=== PATIENT | female | born 1980 | race Caucasian/White ===

== ENCOUNTER 2017-02-07 08:35 | Emergency (ER) | payer OTHER ==
[2017-02-07 08:39] VITALS: BP 124/73; PULSE 68; RESP 16; TEMP 97.9
--- NOTE | 2017-02-07 09:07 | ED ---
General Adult HPI - General Chief complaint: Chest Pain Stated complaint: Rib & Side Pain Time Seen by Provider: 02/07/17 08:46 Source: patient, RN notes reviewed Mode of arrival: ambulatory Limitations: no limitations - History of Present Illness Initial comments: Patient is a 36-year-old female who presents to the emergency department today with complaint of rib pain. She reports that 2 weeks ago she leaned over the edge of her pontoon boat and felt a "pop and a crunch" in the right side of her ribs. She states the pain started to go away and then last Monday she leaned up against a washing machine and the pain returned. Since then the pain has progressively worsened. She reports the pain is constant and is sharp and stabbing. She states the pain gets worse with deep breathing and coughing. She has taken Motrin for pain but there has been no relief. Denies fever, chills , shortness of breath, abdominal pain, nausea, vomiting, dysuria, hematuria, numbess, tingling, headache or vision changes. - Related Data Home Medications Medication Instructions Recorded Confirmed Cholecalciferol [Vitamin D3] 1,000 unit PO DAILY 02/07/17 02/07/17 Multivit with Calcium,Iron,Min 1 tab PO DAILY 02/07/17 02/07/17 [Women's Multivitamin] buPROPion SR [Wellbutrin SR] 150 mg PO BID 02/07/17 02/07/17 Previous Rx's Medication Instructions Recorded Hydrocodone/Acetaminophen [[place] 1 tab PO Q4HR PRN #20 tab 02/07/17 5-325] Allergies Allergy/AdvReac Type Severity Reaction Status Date / Time amoxicillin Allergy Rash/Hives Verified 02/07/17 08:57 iodine Allergy Dyspnea,HIV Verified 02/07/17 08:57 ES Penicillins Allergy Rash/Hives Verified 02/07/17 08:57 shellfish derived [Shellfish] Allergy Dyspnea,HIV Verified 02/07/17 08:57 ES Review of Systems ROS Statement: Those systems with pertinent positive or pertinent negative responses have been documented in the HPI. ROS Other: All systems not noted in ROS Statement are negative. Past Medical History Past Medical History: No Reported History Additional Past Medical History / Comment(s): SEE DR MARTINES'S H&P History of Any Multi-Drug Resistant Organisms: None Reported Past Surgical History: Uterine Ablation Past Anesthesia/Blood Transfusion Reactions: No Reported Reaction Past Psychological History: Depression Smoking Status: Current every day smoker Past Alcohol Use History: Occasional Past Drug Use History: None Reported - Past Family History Mother Family Medical History: No Reported History General Exam - General Exam Comments Initial Comments: General: Awake and alert, well-developed; appears uncomfortable. is at the bedside. HEENT: Head atraumatic, normocephalic. Pupils are equal, round and reactive to light. Extraocular movements intact. Neck: Supple. Normal ROM. Trachea midline. Chest/Cardiovascular: Regular rate and rhythm. No murmurs, rubs or gallops. Chest symmetrical. Bony tenderness with palpation of right ribs 5-8. Respiratory: Lungs clear to auscultation bilaterally. No wheezes, rales or rhonchi. Normal respiratory effort with no use of accessory muscles. Patient is visibly uncomfortable with deep inhalation. Abdomen: Soft, non-tender, non-distended. No rigidity, rebound or guarding. Normal bowel sounds in all 4 quadrants. Skin: [place], warm and dry without rashes or lesions. Neurological: Alert and oriented x3. CN II-XII grossly intact. Speech is fluent and answers are appropriate. No focal neuro deficits. Psychiatric: Normal mood and affect. No overt signs of depression or anxiety noted. Limitations: no limitations Course Vital Signs 02/07/17 08:36 Temperature 97.9 F Pulse Rate 68 Respiratory 16 Rate Blood Pressure 124/73 O2 Sat by Pulse 99 Oximetry Medical Decision Making - Medical Decision Making This case was discussed with Dr. Dean, attending physician. Chest x-ray was reviewed showing a vague density in the medial left upper lobe with no obvious rib fracture. Patient will be discharged home with recommendation to follow up with primary care provider on outpatient basis within 1-2 weeks. Repeat chest xray recommended. [place] prescribed as needed for pain. Results and management were discussed with the patient who is in agreement. Disposition Clinical Impression: Rib pain on right side Disposition: HOME SELF-CARE Condition: Good Instructions: Chest Wall Pain (ED) Additional Instructions: Please take medications as prescribed. Please follow up with primary care provider within 1-2 days to address chest xray findings. Return to ED if symptoms should worsen or any concerns arise. Prescriptions: Hydrocodone/Acetaminophen [[place] 5-325] 1 tab PO Q4HR PRN #20 tab PRN Reason: Pain Referrals: Halle Simmons DO [Primary Care Provider] - 1-2 days Time of Disposition: 09:33
--- NOTE | 2017-02-07 09:14 | XR ---
EXAMINATION TYPE: XR chest 2V DATE OF EXAM: 02/07/2017 COMPARISON: NONE TECHNIQUE: PA and lateral views submitted. HISTORY: Chest pain FINDINGS: No pneumothorax or pleural effusion. Pectus deformity noted with hyperinflation. No overt failure. Va abimael density noted in the medial aspect of the left upper lobe. IMPRESSION: 1. No acute process. Pectus deformity noted. There is a vague density in the medial aspect of the lef t upper lobe which could be correlated with CT scan.
== END 2017-02-07 09:39 | disposition home or self-care (01) ==
LOC: EC 08:35
DX: R07.81 Pleurodynia (principal); F32.9 Major depressive disorder, single episode, unspecified; F17.200 Nicotine dependence, unspecified, uncomplicated; Z88.0 Allergy status to penicillin; Z91.013 Allergy to seafood; Z91.048 Other nonmedicinal substance allergy status; Z79.899 Other long term (current) drug therapy; W22.09XA Striking against other stationary object, initial encounter
CPT/HCPCS: 71020; 99283

== ENCOUNTER → 2018-07-04 | Outpatient (CLI) | payer OTHER ==
[2018-07-04 11:57] VITALS: BP 117/75; PULSE 79; RESP 20; TEMP 96.8; BMI 56.7
--- NOTE | 2018-07-04 13:27 | P.HPOB ---
History of Present Illness H&P Date: 07/04/18 Chief Complaint: Bilateral breast pain and bilateral lumps starting 3 weeks ago. This is a 37-year-old with an LMP of 2006. The patient has been amenorrhea can sense her endometrial ablation in 2006. The patient states that 3 weeks ago she developed left breast pain and a lump superior to the areola. She states it is a pea sized lump and can be very painful. She rates the pain at approximately 5 or 6 out of 10. About 1 1/2 weeks ago the patient developed a similar lump and pain in the right breast at approximately the 10 o'clock position. She states this pain started at it to and has progressively increased and is now at 6 out of 10. The lump that she feels is about the size of a pea according to the patient. The patient did have a mammogram done on . A left ultrasound workup was also done and was felt to be probably benign. About 1 year ago on 07/17/2017 she had bilateral breast ultrasound and benign findings were noted. These tests were done at an outside center. Review of Systems She has lost about 5 pounds over the last 2 years. She denies respiratory, cardiac, or G.I. problems. The patient states she does have occasional hot flashes during the day but she has had greater problems at night with night sweats. She has also noticed mood changes as well. 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 She has been amenorrheic since her endometrial ablation in 2006. History of Any Multi-Drug Resistant Organisms: None Reported Past Surgical History: Uterine Ablation (2006) Past Anesthesia/Blood Transfusion Reactions: No Reported Reaction Past Psychological History: No Psychological Hx Reported Smoking Status: Current every day smoker (One half to one pack of cigarettes per day. 4 or 5 drinks per week) Past Alcohol Use History: Occasional Past Drug Use History: None Reported Additional History: She has been since 2016 and this is her 2nd marriage. She does not work outside the home. - Past Family History Mother Family Medical History: No Reported History Additional Family Medical History / Comment(s): Grandmother had cervical cancer and her other grandmother had uterine cancer. Some grandparents also had diabetes. Medications and Allergies Home Medications Medication Instructions Recorded Confirmed Type No Known Home Medications 07/04/18 07/04/18 History Allergies Allergy/AdvReac Type Severity Reaction Status Date / Time amoxicillin Allergy Rash/Hives Verified 02/07/17 08:57 iodine Allergy Dyspnea,HIV Verified 02/07/17 08:57 ES Penicillins Allergy Rash/Hives Verified 02/07/17 08:57 shellfish derived [Shellfish] Allergy Dyspnea,HIV Verified 02/07/17 08:57 ES Exam Vital Signs Temp Pulse Resp BP Pulse Ox 07/04/18 11:44 96.8 F L 79 20 117/75 100 Height 5'4", weight 150 pounds, BMI 26. This is a well-developed well-nourished white female who is alert and oriented times 3 in no acute distress. HEENT: Within normal limits. BREASTS: are somewhat nodular throughout bilaterally. There are tender areas at the 10 o'clock position of the right breast and the 11 o'clock position of the left breast. The areas of tenderness corresponded with the spots that the patient feels lumps and is where she has been having pain. In each of these positions there is a 1 cm lump which is slightly more prominent than the surrounding fibrous tissue. There is no breast dimpling. The nipples appear normal and are not inverted. There is no nipple discharge. No other masses are noted. AXILLARY EXAM: Negative for adenopathy. IMPRESSION: 1. 37-year-old female who has been amenorrheic since her endometrial ablation in 2006 with a three-week history of left breast pain in a breast lump as well as a 1 1/2 week history of right breast pain and a breast lump. Differential diagnosis will will include breast cysts, fibrocystic changes with breast pain, and less likely malignancy. 2. Night sweats. PLAN: 1. Bilateral diagnostic mammogram and bilateral breast ultrasound. These will be done today. The areas of concern have been marked. 2. If benign findings, we will follow the breast changes conservatively. We will recheck at the time of her annual well woman exam which will include pelvic exam and Pap smear. 3. I have recommended that she tried to limit caffeine and chocolate intake since these can potentially make the breast tissue more sensitive. 4. Blood tests will include CBC with differential and TSH. 5. She will make an appointment for her annual well woman exam with pelvic exam. Total time spent with the patient 25 minutes.
[2018-07-04 15:28] LABS: Basophils # (A) 0.1 k/uL (0-0.2); Basophils % (A) 1 %; Eosinophils # (A) 0.3 k/uL (0-0.7); Eosinophils % (A) 3 %; HCT 45.4 % (34.0-46.0); HGB 14.6 gm/dL (11.4-16.0); Lymphocytes # (A) 2.4 k/uL (1.0-4.8); Lymphocytes % (A) 28 %; MCH 32.6 pg (25.0-35.0); MCHC 32.2 g/dL (31.0-37.0); MCV 101.2 fL (80.0-100.0); Mean Platelet Volume 7.5; Monocytes # (A) 0.4 k/uL (0-1.0); Monocytes % (A) 5 %; Neutrophils # (A) 5.2 k/uL (1.3-7.7); Neutrophils % (A) 62 %; Platelet Count 342 k/uL (150-450); RBC 4.49 m/uL (3.80-5.40); RDW 12.5 % (11.5-15.5); WBC 8.4 k/uL (3.8-10.6)
--- NOTE | 2018-07-09 08:38 | MM ---
Reason for exam: clinical finding. Last mammogram was performed 3 years and 2 months ago. Indicated problem(s): palpable abnormality in both breasts. Physical Findings: Nurse Summary: 1cm nodule in the right breast at 10 o'clock and a 1 cm nodule in the left breast at 11 o'clock (Dr. Lang). MG 3D Diag Mammo W/Cad MALENA Bilateral CC and MLO view(s) were taken. Prior study comparison: May 14, 2015, mammogram, performed at [facility]. May 14, 2015, ultrasound, performed at [facility]. March 19, 2008, bilateral diagnostic digital mammog. The breast tissue is extremely dense which could obscure a lesion on mammography. Previous mammotome biopsy in the left breast. BB marker bilateral palpable abnormality may have been biopsied previously. No significant new findings when compared with previous films. These results were verbally communicated with the patient on 07/06/18. ASSESSMENT: Benign, BI-RAD 2 RECOMMENDATION: Routine screening mammogram of both breasts in 1 year. Manage on a clinical basis with regard to palpable.
--- NOTE | 2018-07-09 08:40 | USB ---
Reason for exam: clinical finding. Indicated problem(s): palpable abnormality in both breasts. US Breast BILAT Right complete breast ultrasound includes all four quadrants, the retroareolar region and axilla. Finding demonstrates a 5 x 3 x 8mm oval, lymph node at 10 o'clock and a 9 x 4 x 8mm lobular, cystic lesion at 11 o'clock BB. Left complete breast ultrasound includes all four quadrants, the retroareolar region and axilla. Finding demonstrates a 5 x 2 x 4mm oval, cystic lesion at 2 o'clock, a 6 x 3 x 5mm oval, cystic lesion at 5 o'clock and a 22 x 6 x 23mm oval, solid, hypoechoic lesion at 11 o'clock BB present on comparison, stable. These results were verbally communicated with the patient on 07/06/18. ASSESSMENT: Benign, BI-RAD 2 RECOMMENDATION: Routine screening mammogram of both breasts in 1 year. Manage on a clinical basis with regard to palpable.
--- NOTE | 2018-07-10 17:14 | P.PN ---
Progress Note - Text Progress Note Date: 07/10/18 OUTPATIENT FOLLOW-UP NOTE TEST(S)/RESULTS: test results from 07/04/2018 include benign diagnostic mammogram with ultrasounds on both sides. TSH and CBC were OK. METHOD OF NOTIFICATION: a message with these results was left on the patient's voicemail. PATIENT COMMENTS: DIAGNOSIS: benign breast imaging and normal TSH and CBC DISCUSSION: PLAN: we will recheck the breasts at her annual exam which she was instructed to schedule. She was also instructed to call if she has any questions or concerns.
--- NOTE | 2018-07-11 10:17 | P.PN ---
Progress Note - Text Progress Note Date: 07/11/18 The patient has called back after she received the message regarding her be 9 diagnostic mammogram and bilateral breast ultrasounds done on 07/04/2018. She is still very concerned regarding the multiple breast lumps and breast pains that she has been having. I have offered to refer her to Dr. Ever Mari, the breast surgeon, to further discuss and evaluate her lumps and symptoms. She would like to see Dr. Ever Mari for this. She will also be making an appointment for her annual well woman exam with me.
== END | disposition home or self-care (01) ==
LOC: WWCWWP 11:30
PROVIDERS: ATTEND Obstetrics & Gynecology
DX: N64.4 Mastodynia (principal); N63.0 Unspecified lump in unspecified breast; R61 Generalized hyperhidrosis
CPT/HCPCS: 36415; 77062; 77066; 84443; 85025

== ENCOUNTER → 2018-07-17 | Outpatient (CLI) | payer OTHER ==
[2018-07-17 16:06] VITALS: BP 115/75; PULSE 84; RESP 16; TEMP 96.9; BMI 24.9
--- NOTE | 2018-07-17 18:05 | P.HPOB ---
History of Present Illness H&P Date: 07/17/18 Chief Complaint: The patient is here for her routine gynecologic exam. This is a 37-year-old 0 to 2 with an LMP of 2006. The patient has been amenorrheic since her endometrial ablation in 2006. Her is status post vasectomy. She is without gynecologic complaints. She was recently seen on 07/04/2018 4 breast check because of bilateral breast pain and lumps. Evaluation with bilateral diagnostic mammogram and bilateral ultrasound was benign. The patient was requesting further evaluation since she continues to have breast lumps and pains so an appointment was made with the breast surgeon, Dr. Ever Mari. She has an appointment on 08/10/2018. Review of Systems She has lost about 10 pounds over the past 2 years. She denies respiratory, cardiac, or G.I. problems. 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 She has been amenorrheic since her endometrial ablation in 2006. History of Any Multi-Drug Resistant Organisms: None Reported Past Surgical History: Uterine Ablation Additional Past Surgical History / Comment(s): Endometrial ablation 2006. Past Anesthesia/Blood Transfusion Reactions: No Reported Reaction Past Psychological History: No Psychological Hx Reported Smoking Status: Current every day smoker (Currently trying to quit with Wellbutrin) Past Alcohol Use History: Occasional Past Drug Use History: None Reported Additional History: She has been made since 2016 and this is her 2nd marriage. She is currently not working outside the home. - Past Family History Mother Family Medical History: No Reported History Additional Family Medical History / Comment(s): Grandmother had cervical cancer and her other grandmother had uterine cancer. Some grandparents also had diabetes. Medications and Allergies Home Medications Medication Instructions Recorded Confirmed Type buPROPion [Wellbutrin] 200 mg PO BID 07/17/18 07/17/18 History Allergies Allergy/AdvReac Type Severity Reaction Status Date / Time amoxicillin Allergy Rash/Hives Verified 07/17/18 16:02 iodine Allergy Dyspnea,HIV Verified 07/17/18 16:02 ES Penicillins Allergy Rash/Hives Verified 07/17/18 16:02 shellfish derived [Shellfish] Allergy Dyspnea,HIV Verified 07/17/18 16:02 ES Exam Vital Signs Temp Pulse Resp BP Pulse Ox 07/17/18 16:03 96.9 F L 84 16 115/75 98 Intake and Output 07/17/18 07/17/18 07/17/18 06:59 14:59 22:59 Other: Weight 65.771 kg Height 5'4", weight 145 pounds, BMI 24.9. This is a well-developed well-nourished white female who is alert and oriented times 3 in no acute distress. HEENT: Within normal limits. NECK: Supple without mass or thyromegaly. CHEST AND LUNGS: Clear to auscultation. HEART: Regular rate and rhythm. BREASTS: moderate nodularity and fibrous type changes throughout the breasts bilaterally. The breasts are nontender. There is an increased prominence of nodularity in the left breast at the 11 o'clock position consistent with her previous exam on 07/04/2018. AXILLARY EXAM: Negative for adenopathy. BACK: Negative for CVA tenderness. ABDOMEN: Soft, nontender, without palpable masses. PELVIC EXAM: Normal external genitalia. Cervix and vagina appear normal. There is no unusual discharge. There is no evidence of prolapse. The uterus is retroverted, nongravid size and nontender. There are no palpable adnexal masses or tenderness. RECTAL EXAM: negative for mass or tendernes. EXTREMITIES: Nontender. IMPRESSION: 1. 37-year-old female with normal gynecologic exam. 2. Fibrocystic changes of the breast with increased nodularity in the left breast at the 11 o'clock position. Breast imaging done recently included benign diagnostic mammogram and benign bilateral ultrasounds. PLAN: 1. Pap smear was performed. 2. Self breast awareness was discussed with the patient. Because of the unusual breast pains and lumps, the patient has requested further evaluation by a breast surgeon, Dr. Ever Mari. She has an appointment with her on 08/10/2018. 3. She will continue to try to quit smoking and she is doing this with Wellbutrin which was prescribed by another healthcare provider. 4. She was advised to return in one year for her annual well woman exam.
== END ==
LOC: WWCWWP 15:44
PROVIDERS: ATTEND Obstetrics & Gynecology
DX: Z53.9 Procedure and treatment not carried out, unspecified reason (principal)

== ENCOUNTER → 2018-08-10 | Outpatient (CLI) | payer OTHER ==
[2018-08-10 13:12] VITALS: BP 114/74; PULSE 84; RESP 16; TEMP 97.4; BMI 24.0
== END | disposition home or self-care (01) ==
LOC: WWCWWP 12:27
PROVIDERS: ATTEND Surgery
DX: Z53.9 Procedure and treatment not carried out, unspecified reason (principal)

== ENCOUNTER → 2018-09-27 | Outpatient (CLI) | payer OTHER ==
[2018-09-27 09:28] VITALS: BP 109/70; PULSE 71; RESP 18; TEMP 98; BMI 23.0
--- NOTE | 2018-09-27 10:00 | P.GSHP ---
History of Present Illness H&P Date: 09/27/18 Chief Complaint: breast nodules, and pain The cord is a 37-year-old white female who presents with a complaint of bilateral breast nodularity in the upper outer quadrant area of each breast, as well as bilateral breast pain. The pain is associated with some nodularity. The pain is worse with palpation or manipulation of the nodularity. The patient is amenorrheic secondary to uterine ablation approximately 12 years ago. She does not take any hormones. She does not drink any large amounts of caffeine. She smokes a half a pack per day. She is not exposed to secondhand smoke. She does not drink pop. She does not eat chocolate regularly. She had a bilateral mammogram in June 2018 this was felt to be a benign BIRADS 2. She had had a previous mammotome biopsy in the left breast which was benign. She also had a bilateral ultrasound which revealed benign findings as well. There were cystic changes noted in both breasts. Family History: maternal grandmother: cervical cnacer paternal grandmother: uterine cancer Hormonal History: mennarche: 12 2 miscarrages, breast fed: yes, first at 19 Patient is had a uterine ablation approximately 12 years ago and has not had a menstrual period since BCP 2 years hormones: none Past surgical history: 1. Uterine ablation 2. Bilateral inguinal hernia surgery Past medical history: one Social History: smoke: 1/2 PPD since 18 alcohol: 2 times month drugs: none - Constitutional Constitutional: Reports sweats - EENT Eyes: denies blurred vision, denies pain Ears: deny: decreased hearing, tinnitus Ears, nose, mouth and throat: Denies headache, Denies sore throat - Breasts Breasts: bilateral: as per HPI - Cardiovascular Cardiovascular: Denies chest pain, Denies shortness of breath - Respiratory Comment: smoker - Gastrointestinal Gastrointestinal: Reports constipation - Genitourinary (Female) Genitourinary: Denies dysuria, Denies hematuria - Menstruation Menstruation: Reports amenorrhea - Musculoskeletal Comment: ? 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 She has been amenorrheic since her endometrial ablation in 2006. History of Any Multi-Drug Resistant Organisms: None Reported Past Surgical History: Hernia Repair, Uterine Ablation Additional Past Surgical History / Comment(s): Endometrial ablation 2006; Double hernia repair 09/2018; Past Anesthesia/Blood Transfusion Reactions: No Reported Reaction Past Psychological History: No Psychological Hx Reported Smoking Status: Current every day smoker Past Alcohol Use History: Occasional Past Drug Use History: None Reported - Past Family History Father Family Medical History: No Reported History Additional Family Medical History / Comment(s): Paternal grandmother had uterine cancer. Mother Family Medical History: No Reported History Additional Family Medical History / Comment(s): Maternal grandmother had cervical cancer. Some grandparents also had diabetes. Medications and Allergies Home Medications Medication Instructions Recorded Confirmed Type Ibuprofen [Motrin] 600 mg PO Q8HR PRN #24 tab 07/29/18 09/27/18 Rx Allergies Allergy/AdvReac Type Severity Reaction Status Date / Time amoxicillin Allergy Rash/Hives Verified 09/27/18 09:20 iodine Allergy Dyspnea,HIV Verified 09/27/18 09:20 ES Penicillins Allergy Rash/Hives Verified 09/27/18 09:20 shellfish derived [Shellfish] Allergy Dyspnea,HIV Verified 09/27/18 09:20 ES Surgical - Exam Vital Signs Temp Pulse Resp BP Pulse Ox 98.0 F 71 18 109/70 100 09/27/18 09:20 09/27/18 09:20 09/27/18 09:20 09/27/18 09:20 09/27/18 09:20 BMI 23.5 - General well developed, well nourished, no distress - Eyes normal ocular movement - ENT no hearing loss, no congestion - Neck no masses, trachea midline - Respiratory normal respiratory effort, clear to auscultation - Cardiovascular Rhythm: regular Heart Sounds: normal: S1, S2 - Abdomen Abdomen: soft, non tender, no guarding, no rigid, no rebound - Integumentary normal turgor - Neurologic no disoriented, no combative - Musculoskeletal normal gait, normal posture - Psychiatric oriented to time, oriented to person, oriented to place, speech is normal, memory intact breast exam: Breasts: Multi-positional exam fibrocystic breast changes, increased fibroglandular tissue in the upper outer quadrant without any discrete lump or mass noted Right axilla: No adenopathy of concern Left breast: Multi-positional exam no dominant masses or nodules of concern, dense breast tissue, increased nodularity in the upper outer quadrant consistent with breast tissue and fibrocystic changes no discrete mass to warrant biopsy Left axilla: No adenopathy of concern Results Mammogram and ultrasound report reviewed Assessment and Plan Assessment: Impression: 1. Fibrocystic breast changes 2. Dense breast 3. Family history of cancer 4. Mastodynia 5. Nicotine dependence 6. Amenorrhea related to prior uterine ablation Causes of breast pain have been discussed with the patient. She is been given a book regarding breast pain. She is going to stop smoking. She is going to follow up in 4 months after she is stop smoking to see if this is resolved her mastodynia. Plan: 1. Continue breast self-exam 2. Follow-up in 4 months after she has stop smoking to assure that the pain is resolved 3. We'll discuss possibility of blood test to determine if patient is perimenopausal with Dr. Lang CC: Dr. Lang
== END | disposition home or self-care (01) ==
LOC: WWCWWP 08:44
PROVIDERS: ATTEND Surgery
DX: Z53.9 Procedure and treatment not carried out, unspecified reason (principal)

== ENCOUNTER → 2019-07-03 | Outpatient (CLI) | payer OTHER ==
--- NOTE | 2019-07-03 11:53 | XR ---
EXAMINATION TYPE: XR cervical spine comp DATE OF EXAM: 07/03/2019 CLINICAL HISTORY: pain COMPARISON: NONE TECHNIQUE: Frontal, lateral, oblique, swimmers, and open mouth view of the cervical spine are obtaine d. FINDINGS: The cervical spine is visualized in its entirety from C1 thru the top of T1 level. It is s atisfactory in alignment without evidence of acute fracture or dislocation. The pre-vertebral soft t issue appears within normal limits. Disc spaces are well preserved. The C1-C2 articulation is unremar kable on the open mouth view. The oblique images are within normal limits. IMPRESSION: No acute fracture or dislocation is seen in the cervical spine.ICD 10 NO FRACTURE, INITI AL EVALUATION
== END | disposition home or self-care (01) ==
LOC: RADXRMAIN 11:30
PROVIDERS: ATTEND Family Medicine
DX: M54.2 Cervicalgia (principal); R51 Headache
CPT/HCPCS: 72050

== ENCOUNTER 2020-02-21 13:43 | Emergency (ER) | payer OTHER ==
[2020-02-21 13:47] VITALS: RESP 16; TEMP 98.2
[2020-02-21] MEDS ORDERED: KETOROLAC 15 MG/ML 1 ML VIAL IM STA (14:17)
--- NOTE | 2020-02-21 14:34 | ED ---
General Adult HPI - General Chief complaint: ENT Stated complaint: lump behind ear Time Seen by Provider: 02/21/20 14:01 Source: patient Mode of arrival: ambulatory Limitations: no limitations - History of Present Illness Initial comments: 39-year-old female patient presents to the emergency department today for evaluation of swelling and pain behind the right ear. Patient states 2 days ago she noticed a painful lump behind the right ear. Patient states that she saw her primary care physician for yesterday was given a Z-Kareem which she started today. Patient states that over the last 2 days the area has doubled in size and the pain is now going into her head and down her neck. She denies any ear pain. Denies sore throat. Denies any history of similar symptoms. Denies fever or chills. States she is otherwise healthy does not take any medications. Patient denies any recent rash, cough, shortness of breath, chest pain, abdominal pain, nausea, vomiting, diarrhea, constipation, back pain, numbness, tingling, dizziness, weakness, hematuria, dysuria, urinary urgency, urinary frequency, headache, visual changes, or any other complaints. - Related Data Home Medications Medication Instructions Recorded Confirmed Azithromycin [Zithromax Z-pack (6 See Taper PO DIRECTED 02/21/20 02/21/20 tabs)] Previous Rx's Medication Instructions Recorded Cephalexin [Keflex] 500 mg PO Q6HR #40 cap 02/21/20 Ibuprofen [Motrin] 600 mg PO Q8HR PRN #30 tab 02/21/20 Allergies Allergy/AdvReac Type Severity Reaction Status Date / Time amoxicillin Allergy Rash/Hives Verified 02/21/20 15:44 iodine Allergy Dyspnea,HIV Verified 02/21/20 15:44 ES Penicillins Allergy Rash/Hives Verified 02/21/20 15:44 shellfish derived [Shellfish] Allergy Dyspnea,HIV Verified 02/21/20 15:44 ES Review of Systems ROS Statement: Those systems with pertinent positive or pertinent negative responses have been documented in the HPI. ROS Other: All systems not noted in ROS Statement are negative. 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 She has been amenorrheic since her endometrial ablation in 2006. History of Any Multi-Drug Resistant Organisms: None Reported Past Surgical History: Hernia Repair, Uterine Ablation Additional Past Surgical History / Comment(s): Endometrial ablation 2006; Double hernia repair 09/2018; Past Anesthesia/Blood Transfusion Reactions: No Reported Reaction Past Psychological History: No Psychological Hx Reported Smoking Status: Current every day smoker Past Alcohol Use History: Occasional Past Drug Use History: None Reported - Past Family History Father Family Medical History: No Reported History Additional Family Medical History / Comment(s): Paternal grandmother had uterine cancer. Mother Family Medical History: No Reported History Additional Family Medical History / Comment(s): Maternal grandmother had cervical cancer. Some grandparents also had diabetes. General Exam Limitations: no limitations General appearance: alert, in no apparent distress, other (This is a well- developed, well-nourished adult female patient in no acute distress. Vital signs upon presentation are temperature 98.2F, pulse 87, respirations 16, blood pressure 124/80, pulse ox 99% on room air.) Eye exam: Present: normal appearance, PERRL, EOMI. Absent: scleral icterus, conjunctival injection, periorbital swelling ENT exam: Present: normal oropharynx, mucous membranes moist, TM's normal bilaterally, other (Swelling, tenderness to the right post-auricular area. No erythema. ) Neck exam: Present: normal inspection, full ROM. Absent: tenderness, meningismus, lymphadenopathy Respiratory exam: Present: normal lung sounds bilaterally. Absent: respiratory distress, wheezes, rales, rhonchi, stridor Cardiovascular Exam: Present: regular rate, normal rhythm, normal heart sounds. Absent: systolic murmur, diastolic murmur, rubs, gallop, clicks Neurological exam: Present: alert, oriented X3, CN II-XII intact Psychiatric exam: Present: normal affect, normal mood Skin exam: Present: warm, dry, intact, normal color. Absent: rash Course Vital Signs 02/21/20 02/21/20 13:45 16:00 Temperature 98.2 F 98.2 F Pulse Rate 87 88 Respiratory 16 16 Rate Blood Pressure 124/80 126/88 O2 Sat by Pulse 99 99 Oximetry Medical Decision Making - Medical Decision Making 39-year-old female patient presents to the emergency department today for evaluation of pain and swelling behind the right ear. Physical examination did reveal soft tissue swelling with tenderness over the postauricular region. No overlying erythema. The tympanic membrane appeared normal. Patient did undergo computed tomography scan of the mastoids which revealed soft tissue thickening consistent with inflammation but no evidence for abscess or mastoiditis. Patient will be started on Keflex. She is instructed to stop taking the azithromycin given to her by her primary care physician. She is given a starter pack with Tylenol codeine for pain control and instructed to take ibuprofen. She is instructed to follow-up with her primary care physician for recheck in 1- 2 days. Return parameters were discussed in detail. She verbalizes understanding and agrees with this plan. - Radiology Data Radiology results: report reviewed, image reviewed CT mastoids without contrast was obtained. Report is reviewed in its entirety. Impression by Dr. Rose shows mild asymmetric inflammation and thickening of the right postauricular subcutaneous tissue. No significant skin thickening. No underlying osseous erosion opacification of the mastoid air cells. Foamy mucosal thickening of the left sphenoid sinus may represent acute sinusitis. Disposition Clinical Impression: Cellulitis of head [any part, except face] Disposition: HOME SELF-CARE Condition: Good Instructions (If sedation given, give patient instructions): Cellulitis (ED) Additional Instructions: Complete antibiotic prescription in full. Take medications as needed for pain relief. Follow-up with your primary care physician for recheck in 1-2 days. Return to the emergency department immediately for any new, worsening, or concerning symptoms. Prescriptions: Cephalexin [Keflex] 500 mg PO Q6HR #40 cap Ibuprofen [Motrin] 600 mg PO Q8HR PRN #30 tab PRN Reason: Pain Is patient prescribed a controlled substance at d/c from ED?: No Referrals: Molly Bryant MD [Primary Care Provider] - 1-2 days Time of Disposition: 15:54
--- NOTE | 2020-02-21 15:13 | CT ---
EXAMINATION TYPE: CT mastoid wo con DATE OF EXAM: 02/21/2020 COMPARISON: None HISTORY: Right post-auricular swelling, tenderness CT DLP: 222.8 mGycm. Automated Exposure Control for Dose Reduction was Utilized. TECHNIQUE: CT scan of internal auditory canal is performed without contrast, thin cut axial images ar e obtained, coronal reformatted images are also reviewed. FINDINGS: There is mild soft tissue thickening of the right postauricular subcutaneous tissue, which is asymmet caity versus the left side. There is no significant associated skin thickening. No underlying bony eros ion. The mastoid air cells are clear with no abnormal opacification bilaterally. The external auditory canals are patent bilaterally. The middle ear ossicles are symmetric and unrema rkable. There is no evidence of suspicious surrounding soft tissue density to suggest cholesteatoma. The scutum is preserved bilaterally. The cochlea and the semicircular canals are symmetric and unr emarkable. Vestibular aqueduct and internal carotid canal appear unremarkable. Temporomandibular joints are maintained bilaterally. There is mucosal thickening of the left sphenoid sinus with foamy secretion. Nonpneumatization of the frontal sinuses. IMPRESSION: 1. Mild asymmetric inflammation and thickening of the right postauricular subcutaneous tissue. No si gnificant skin thickening. No underlying osseous erosion or opacification of the mastoid air cells. 2. Foamy mucosal thickening of the left sphenoid sinus may represent acute sinusitis.
[2020-02-21] MEDS ORDERED: ACET/COD 300 MG/30 MG STARTER PACK 6 TAB BTL PO STA (15:52)
[2020-02-21] MEDS ORDERED: CEPHALEXIN 500MG STARTER PACK 4 CAP BTL PO STA (15:52)
[2020-02-21 16:01] VITALS: BP 126/88; PULSE 88
== END 2020-02-21 16:01 | disposition home or self-care (01) ==
LOC: EC 13:43
DX: H60.11 Cellulitis of right external ear (principal); F17.200 Nicotine dependence, unspecified, uncomplicated; Z88.0 Allergy status to penicillin; Z91.013 Allergy to seafood; Z91.041 Radiographic dye allergy status
CPT/HCPCS: 70486; 99284; 96372; J1885

== ENCOUNTER → 2020-06-25 | Outpatient (CLI) | payer OTHER ==
--- NOTE | 2020-06-25 17:06 | CONS ---
CONSULTATION DATE OF SERVICE: 06/25/2020 This 39-year-old lady has been evaluated in [facility] for possible obstructive sleep apnea-hypopnea syndrome. HISTORY OF PRESENT ILLNESS/SLEEP-WAKE EVALUATION: The patient's usual sleep schedule is from 11 p.m. to 5:30 a.m. on weekdays and from 11 p.m. to 10 or 11 a.m. on weekends. She may have problems with falling asleep. She has a TV set in the bedroom. She usually sleeps on the side position with loud snoring and witnessed episodes by her of stopped breathing during sleep. The patient wakes up from sleep up to 5 times, with 2 episodes of nocturia. Positive history of twitching of her legs during the night; movements, restless legs, sweating, palpitations. In the morning the patient wakes up tired, falling asleep during the day, has difficulties paying attention, problems with memory, concentration, irritability, depression, anxiety, claustrophobia. Stevinson Sleepiness Scale is in the very high range of 20. The patient may take up to 3 naps a day at different times. PAST MEDICAL HISTORY: Positive for fibromyalgia, headaches. MEDICATIONS: None. SOCIAL HISTORY: Negative for smoking. Alcohol consumption: Occasional. FAMILY HISTORY: Arthritis and diabetes. REVIEW OF SYSTEMS: Multiple awakenings from sleep, sleepiness during the day. PHYSICAL EXAMINATION: GENERAL: A pleasant lady without distress. VITAL SIGNS: BP 109/72, HR 85, RR 12, height 5 feet 4-3/4 inches, weight 156 pounds, BMI 26.7, temperature 98.3, oxygen saturation at room air 96%. HEENT: PERRLA, EOMI. Evaluation of oropharynx showed tongue protrudes midline. Low position of soft palate. Mallampati III. NECK: Supple. No JVD. Thyroid is not palpable. LUNGS: Clear to percussion and to auscultation. Good air exchange. No wheezing or rhonchi. HEART: S1, S2 regular. No murmurs, gallops or rubs. ABDOMEN: Soft and nontender. Bowel sounds are present. No organomegaly appreciated. EXTREMITIES: No clubbing or cyanosis. 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 Cranial nerves 2 to 7 intact. There is no fasciculation or atrophy. noted. No focal deficits observed. IMPRESSION: 1. Loud snoring, witnessed episodes of stopped breathing during sleep, multiple awakenings from sleep, low position of soft palate, excessive daytime sleepiness; obstructive sleep apnea-hypopnea syndrome. 2. History of significant twitching movements during the night; possibly periodic limb movements. 3. History of restless legs syndrome. 4. Significant excessive daytime sleepiness; Stevinson Sleepiness Scale increased to 20, dictating necessary to include differential diagnosis of hypersomnia, including narcolepsy without cataplexy. 5. History of fibromyalgia. 6. Headaches. 7. Status post hernia repair. PLAN: 1. Polysomnography for evaluation of patient's breathing during sleep. 2. CPAP/BiPAP titration if sleep study confirms obstructive sleep apnea-hypopnea syndrome. 3. Preferable position during sleep on the side. 4. No driving if patient feels any sleepiness. 5. I will see patient for follow up visit to explain results of testing and following plan. 6. If sleep study is negative for obstructive sleep apnea-hypopnea syndrome, patient will be a candidate for multiple sleep latency test for objective evaluation of her symptoms of excessive daytime sleepiness for differential diagnosis with hypersomnia and narcolepsy without cataplexy. Thank you very much for referring this patient for consultation. Sincerely, Carter Freeman MD, PhD, FAASM Diplomat of [place] [employer] [place] [employer] [facility] [place] [id number] / ELIN: [id number] /
== END | disposition home or self-care (01) ==
LOC: SLEEP 15:37
PROVIDERS: ATTEND Internal Medicine
DX: G47.33 Obstructive sleep apnea (adult) (pediatric) (principal); Z87.39 Personal history of other diseases of the musculoskeletal system and connective tissue; R51.9 Headache, unspecified; Z98.890 Other specified postprocedural states
CPT/HCPCS: 99211

== ENCOUNTER → 2020-07-02 | Outpatient (CLI) | payer OTHER ==
--- NOTE | 2020-07-06 09:33 | MM ---
Reason for exam: screening (asymptomatic). Last mammogram was performed 2 years ago. Physical Findings: A clinical breast exam by your physician is recommended on an annual basis and results should be correlated with mammographic findings. MG Screening Mammo w CAD Bilateral CC and MLO view(s) were taken. Prior study comparison: July 04, 2018, bilateral MG 3d diag mammo w/cad [facility]. May 14, 2015, mammogram, performed at [facility]. The breast tissue is extremely dense which could obscure a lesion on mammography. Finding: There are faint, fine grouped/clustered calcifications in the middle position of the right breast, 4cm from the nipple. New finding since July 04, 2018 and May 14, 2015. These results were verbally communicated with the patient and result sheet given to the patient on 07/02/20. ASSESSMENT: Incomplete: need additional imaging evaluation, BI-RAD 0 RECOMMENDATION: Special view mammogram of the right breast. [facility] will attempt to contact patient to return for supplemental views.
== END | disposition home or self-care (01) ==
LOC: RADMAMWWP 13:27
PROVIDERS: ATTEND Family Medicine
DX: Z12.31 Encounter for screening mammogram for malignant neoplasm of breast (principal); R92.8 Other abnormal and inconclusive findings on diagnostic imaging of breast
CPT/HCPCS: 77067

== ENCOUNTER → 2020-07-15 | Outpatient (CLI) | payer OTHER ==
[2020-07-15 12:52] LABS: T4, Free (Free Thyroxine) 1.2 ng/dL (0.80-1.80)
[2020-07-15 20:08] LABS: Appearance,CSF Clear; CSF Tube Number 4; CSF Tube Volume 3.9; Nucleated Cells, CSF 0 u/L (0-5); Red Blood Cell,CSF 1 u/L (0-10)
[2020-07-15 20:17] LABS: Total Protein,CSF 39 mg/dL (12-60)
[2020-07-22 12:25] LABS: IgG - CSF 1.6 mg/dL (0.0 - 3.4); IgG/Albumin Index (CSF) 0.54 (0.00 - 0.77); Immunoglobulin G 804 mg/dL (700 - 1600)
== END | disposition home or self-care (01) ==
LOC: LABWHC1 08:09
PROVIDERS: ATTEND Nurse Practitioner Family
DX: R90.82 White matter disease, unspecified (principal); R41.3 Other amnesia; R20.0 Anesthesia of skin
CPT/HCPCS: 36415; 82040; 82042; 82784; 83873; 83916; 84157; 84439; 84443; 84481; 87801; 88108; 89050

== ENCOUNTER → 2020-07-16 | Outpatient (CLI) | payer OTHER ==
--- NOTE | 2020-07-17 09:29 | MM ---
Reason for exam: additional evaluation requested from abnormal screening. Last mammogram was performed less than 1 month ago. History: Benign excisional biopsy of the left breast, 2008. Physical Findings: Nurse did not find any significant physical abnormalities on exam. MG Work Up Mamm w CAD RT CC with magnification and LM view(s) were taken of the right breast. Prior study comparison: July 02, 2020, bilateral MG screening mammo w CAD. July 04, 2018, bilateral MG 3d diag mammo w/cad [facility]. The breast tissue is extremely dense which could obscure a lesion on mammography. Benign appearing calcifications in the right breast. No significant new findings when compared with previous films. These results were verbally communicated with the patient and result sheet given to the patient on 07/16/20. ASSESSMENT: Benign, BI-RAD 2 RECOMMENDATION: Follow-up diagnostic mammogram of the right breast in 6 months.
== END ==
LOC: RADMAMWWP 14:48
PROVIDERS: ATTEND Family Medicine
DX: R92.1 Mammographic calcification found on diagnostic imaging of breast (principal)
CPT/HCPCS: 77065

== ENCOUNTER → 2020-08-19 | Outpatient (CLI) | payer OTHER ==
--- NOTE | 2020-08-19 10:41 | USB ---
Reason for exam: clinical finding. History: Benign excisional biopsy of the left breast, 2008. Indicated problem(s): pain in the right breast. Physical Findings: Nurse did not find any significant physical abnormalities on exam. US Breast RT Right complete breast ultrasound includes all four quadrants, the retroareolar region and axilla. Finding demonstrates a 0.4 x 0.5 x 0.2cm oval lymph node at 10 o'clock, a 0.4 x 0.6 x 0.3cm oval, cystic cluster at 11 o'clock and a 2.0 x 0.9 x 0.5cm oval lymph node at the axilla. These results were verbally communicated with the patient and result sheet given to the patient on 08/19/20. ASSESSMENT: Probably benign, BI-RAD 3 RECOMMENDATION: Ultrasound of the right breast in 6 months.
== END | disposition home or self-care (01) ==
LOC: RADUSWWP 08:43
PROVIDERS: ATTEND Family Medicine
DX: R92.8 Other abnormal and inconclusive findings on diagnostic imaging of breast (principal); N64.4 Mastodynia; M79.621 Pain in right upper arm

== ENCOUNTER → 2020-09-08 | Outpatient (CLI) | payer OTHER | END | disposition home or self-care (01) | LOC: LABWHC1 11:18 | PROVIDERS: ATTEND Nurse Practitioner Family | DX: M25.50 Pain in unspecified joint (principal) | CPT/HCPCS: 36415; 83516; 86038; 86200; 86225; 86235 ==

== ENCOUNTER → 2021-01-18 | Outpatient (CLI) | payer OTHER ==
--- NOTE | 2021-01-18 13:59 | MM ---
Reason for exam: follow-up at short interval from prior study. Last mammogram was performed 6 months ago. History: Benign excisional biopsy of the left breast, 2008. Physical Findings: Nurse did not find any significant physical abnormalities on exam. MG Diagnostic Mammo w CAD [facility]ENA Bilateral CC and MLO view(s) were taken. Prior study comparison: July 16, 2020, right breast MG work up mamm w CAD RT. July 02, 2020, bilateral MG screening mammo w CAD. The breast tissue is extremely dense which could obscure a lesion on mammography. Stable left sided calcifications. There is no discrete abnormality. No significant new findings when compared with previous films. These results were verbally communicated with the patient and result sheet given to the patient on 01/18/21. ASSESSMENT: Benign, BI-RAD 2 RECOMMENDATION: Routine screening mammogram of both breasts in 1 year.
== END | disposition home or self-care (01) ==
LOC: RADMAMWWP 12:38
PROVIDERS: ATTEND Family Medicine
DX: R92.1 Mammographic calcification found on diagnostic imaging of breast (principal)
CPT/HCPCS: 77066

== ENCOUNTER 2021-08-04 10:55 | Emergency (ER) | payer OTHER ==
--- NOTE | 2021-08-04 11:56 | XR ---
EXAMINATION TYPE: XR chest 2V DATE OF EXAM: 08/04/2021 COMPARISON: Chest x-ray February 07, 2017 HISTORY: Left-sided chest pain. TECHNIQUE: Frontal and lateral views of the chest are obtained. FINDINGS: There is no suspicious focal air space opacity, pleural effusion, or pneumothorax seen. T he cardiac silhouette size remains within normal limits. The osseous structures are intact. IMPRESSION: No acute process.
[2021-08-04] MEDS ORDERED: SODIUM CHLORIDE 0.9% 500 ML 500 ML IV STA (15:14)
[2021-08-04] MEDS ORDERED: KETOROLAC 15 MG/ML 1 ML VIAL IVP STA (15:15)
--- NOTE | 2021-08-04 15:19 | ED ---
General Adult HPI - General Chief complaint: Chest Pain Stated complaint: pleurisy Time Seen by Provider: 08/04/21 15:05 Source: patient, RN notes reviewed, old records reviewed Mode of arrival: ambulatory - History of Present Illness Initial comments: Since he well-appearing 40-year-old female in oriented times for presenting with complaints of left sided rib pain worse with a deep breath. She states that she was seen in urgent care last Monday and told she has pleurisy given steroids and nonsteroidal anti-inflammatories which have not helped at all. Patient states was told if she does not get relief to come to the hospital. She denies any medical history. She is a smoker. Denies any fevers, nausea vomiting diarrhea or shortness of breath. -: days(s) (5) Location: chest (left) Severity scale (1-10): 9 Quality: sharp Consistency: constant Improves with: none Worsens with: other (deep breath) Associated Symptoms: denies other symptoms Treatments Prior to Arrival: NSAID, other (steroids ) - Related Data Home Medications Medication Instructions Recorded Confirmed methylPREDNISolone Dose Pack See Taper PO DIRECTED 08/04/21 08/04/21 [Medrol Dose Pack] Previous Rx's Medication Instructions Recorded Ibuprofen [Motrin] 600 mg PO Q8HR PRN #30 tab 02/21/20 Ibuprofen [Motrin] 600 mg PO Q8HR PRN #30 tab 08/04/21 Allergies Allergy/AdvReac Type Severity Reaction Status Date / Time amoxicillin Allergy Rash/Hives, Verified 08/04/21 16:07 vomiting iodine Allergy Dyspnea,HIV Verified 08/04/21 16:07 ES Penicillins Allergy Rash/Hives Verified 08/04/21 16:07 shellfish derived [Shellfish] Allergy Dyspnea,HIV Verified 08/04/21 16:07 ES Review of Systems ROS Statement: Those systems with pertinent positive or pertinent negative responses have been documented in the HPI. ROS Other: All systems not noted in ROS Statement are negative. 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 She has been amenorrheic since her endometrial ablation in 2006. History of Any Multi-Drug Resistant Organisms: None Reported Past Surgical History: Hernia Repair, Uterine Ablation Additional Past Surgical History / Comment(s): Endometrial ablation 2006; Double hernia repair 09/2018; Past Anesthesia/Blood Transfusion Reactions: No Reported Reaction Past Psychological History: No Psychological Hx Reported Smoking Status: Current every day smoker Past Alcohol Use History: Occasional Past Drug Use History: None Reported - Past Family History Father Family Medical History: No Reported History Additional Family Medical History / Comment(s): Paternal grandmother had uterine cancer. Mother Family Medical History: No Reported History Additional Family Medical History / Comment(s): Maternal grandmother had cervical cancer. Some grandparents also had diabetes. General Exam Limitations: no limitations General appearance: alert, in no apparent distress Eye exam: Absent: scleral icterus, conjunctival injection Respiratory exam: Present: normal lung sounds bilaterally. Absent: respiratory distress, wheezes, rales, rhonchi, stridor, chest wall tenderness, accessory muscle use, decreased breath sounds Cardiovascular Exam: Present: regular rate, normal rhythm, normal heart sounds. Absent: JVD GI/Abdominal exam: Present: soft. Absent: distended, tenderness, guarding, rebound, rigid Extremities exam: Present: normal capillary refill. Absent: pedal edema Back exam: Present: normal inspection. Absent: tenderness, CVA tenderness (R), CVA tenderness (L), rash noted Neurological exam: Present: alert, oriented X3 Psychiatric exam: Present: normal affect, normal mood Skin exam: Present: warm, dry, intact, normal color. Absent: cyanosis, d iaphoretic Course Vital Signs 08/04/21 08/04/21 11:07 14:33 Temperature 98.6 F 98.6 F Pulse Rate 89 81 Respiratory 18 18 Rate Blood Pressure 133/72 120/77 O2 Sat by Pulse 98 100 Oximetry EKG Findings - EKG Results: EKG: sinus rhythm (Ventricular rate of 63, GA interval 0.125, QRS 0.81, QTC 0.374) Medical Decision Making - Medical Decision Making 40-year-old female presents with 5 days of left sided chest pain worse with deep inspiration. She denies any cough. No nausea vomiting diarrhea or fevers. No shortness of breath. She did go to urgent care last Monday and they prescribed her steroids for pleurisy however she states the pain remains unchanged. She is a daily smoker. No drug use. PERC Negative. Heart rate 63 sinus rhythm. Pulse ox 100% on room air. No respiratory distress and lung sounds are clear to auscultation. On exam patient abdomen is soft and nontender. There is no pedal edema. Chest x-ray shows no acute cardiopulmonary process. EKG shows sinus rhythm, troponin is negative at 0.012. There is no evidence of leukocytosis. CMP unremarkable. I have a low suspicion that this is cardiac in nature. Patient states that the pain is worse with deep inspiration. This is likely pleuritic chest pain and patient was directed to continue her steroid prescription. Stop smoking and increase her fluid intake. She was directed to take Motrin after finishing her steroid prescription for any pain and follow-up with the primary care doctor next week. Return to the emergency room with worsening or concerning symptoms. Case discussed with Dr. Ochoa. - Lab Data Result diagrams: 08/04/21 15:46 08/04/21 15:46 Lab Results 08/04/21 08/04/21 08/04/21 Range/Units 15:46 15:46 15:46 WBC 7.9 (3.8-10.6) k/uL RBC 5.01 (3.80-5.40) m/uL Hgb 17.1 H (11.4-16.0) gm/dL Hct 50.5 H (34.0-46.0) % MCV 101.0 H (80.0-100.0) fL MCH 34.2 (25.0-35.0) pg MCHC 33.8 (31.0-37.0) g/dL RDW 12.3 (11.5-15.5) % Plt Count 360 (150-450) k/uL MPV 8.7 Neutrophils % 52 % Lymphocytes % 38 % Monocytes % 5 % Eosinophils % 1 % Basophils % 1 % Neutrophils # 4.2 (1.3-7.7) k/uL Lymphocytes # 3.0 (1.0-4.8) k/uL Monocytes # 0.4 (0-1.0) k/uL Eosinophils # 0.1 (0-0.7) k/uL Basophils # 0.1 (0-0.2) k/uL PT 10.7 (9.0-12.0) sec INR 1.0 (<1.2) APTT 24.2 (22.0-30.0) sec D-Dimer (<0.60) mg/L FEU Sodium 138 (137-145) mmol/L Potassium 4.3 (3.5-5.1) mmol/L Chloride 103 (98-107) mmol/L Carbon Dioxide 23 (22-30) mmol/L Anion Gap 12 mmol/L BUN 12 (7-17) mg/dL Creatinine 0.66 (0.52-1.04) mg/dL Est GFR (CKD-EPI)AfAm >90 (>60 ml/min/1.73 sqM) Est GFR (CKD-EPI)NonAf >90 (>60 ml/min/1.73 sqM) Glucose 96 (74-99) mg/dL Calcium 9.7 (8.4-10.2) mg/dL Magnesium 1.9 (1.6-2.3) mg/dL Total Bilirubin 0.9 (0.2-1.3) mg/dL AST 19 (14-36) U/L ALT 14 (4-34) U/L Alkaline Phosphatase 45 (38-126) U/L Troponin I (0.000-0.034) ng/mL Total Protein 8.2 (6.3-8.2) g/dL Albumin 5.0 (3.5-5.0) g/dL Amylase 77 (30-110) U/L Lipase 124 (23-300) U/L 08/04/21 08/04/21 Range/Units 15:46 16:26 WBC (3.8-10.6) k/uL RBC (3.80-5.40) m/uL Hgb (11.4-16.0) gm/dL Hct (34.0-46.0) % MCV (80.0-100.0) fL MCH (25.0-35.0) pg MCHC (31.0-37.0) g/dL RDW (11.5-15.5) % Plt Count (150-450) k/uL MPV Neutrophils % % Lymphocytes % % Monocytes % % Eosinophils % % Basophils % % Neutrophils # (1.3-7.7) k/uL Lymphocytes # (1.0-4.8) k/uL Monocytes # (0-1.0) k/uL Eosinophils # (0-0.7) k/uL Basophils # (0-0.2) k/uL PT (9.0-12.0) sec INR (<1.2) APTT (22.0-30.0) sec D-Dimer <0.17 (<0.60) mg/L FEU Sodium (137-145) mmol/L Potassium (3.5-5.1) mmol/L Chloride (98-107) mmol/L Carbon Dioxide (22-30) mmol/L Anion Gap mmol/L BUN (7-17) mg/dL Creatinine (0.52-1.04) mg/dL Est GFR (CKD-EPI)AfAm (>60 ml/min/1.73 sqM) Est GFR (CKD-EPI)NonAf (>60 ml/min/1.73 sqM) Glucose (74-99) mg/dL Calcium (8.4-10.2) mg/dL Magnesium (1.6-2.3) mg/dL Total Bilirubin (0.2-1.3) mg/dL AST (14-36) U/L ALT (4-34) U/L Alkaline Phosphatase (38-126) U/L Troponin I <0.012 (0.000-0.034) ng/mL Total Protein (6.3-8.2) g/dL Albumin (3.5-5.0) g/dL Amylase (30-110) U/L Lipase (23-300) U/L Disposition Clinical Impression: Pleuritic chest pain Disposition: HOME SELF-CARE Condition: Good Instructions (If sedation given, give patient instructions): Chest Pain (ED) Additional Instructions: Increase your fluid intake, take Motrin as needed for pain. Do not start taking Motrin until you have finished your steroid prescription. Decrease or stop smoking as smoking increases inflammation. Follow-up with your primary care doctor next week. Return to the emergency room with any new or concerning symptoms. Prescriptions: Ibuprofen [Motrin] 600 mg PO Q8HR PRN #30 tab PRN Reason: Pain Is patient prescribed a controlled substance at d/c from ED?: No Referrals: None,Stated [Primary Care Provider] - 1-2 days April Lewis MD [REFERRING] - 1-2 days Pedro Gay DO [Doctor of Osteopathic Medicine] - 1-2 days Time of Disposition: 17:00
[2021-08-04 16:11] LABS: ALT 14 U/L (4-34); AST 19 U/L (14-36); African American GFR (CKD) >90 (>60 ml/min/1.73 sqM); Alkaline Phosphatase 45 U/L (38-126); Amylase 77 U/L (30-110); Anion Gap 12 mmol/L; Blood Urea Nitrogen 12 mg/dL (7-17); Calcium 9.7 mg/dL (8.4-10.2); Carbon Dioxide 23 mmol/L (22-30); Chloride 103 mmol/L (98-107); Glucose 96 mg/dL (74-99); Lipase 124 U/L (23-300); Magnesium 1.9 mg/dL (1.6-2.3); Non-African American GFR(CKD) >90 (>60 ml/min/1.73 sqM); Potassium 4.3 mmol/L (3.5-5.1); Sodium 138 mmol/L (137-145); Total Bilirubin 0.9 mg/dL (0.2-1.3); Total Protein 8.2 g/dL (6.3-8.2)
[2021-08-04 16:14] LABS: Partial Thromboplastin Time 24.2 sec (22.0-30.0); Prothrombin Time 10.7 sec (9.0-12.0)
[2021-08-04 16:18] LABS: Basophils # (A) 0.1 k/uL (0-0.2); Basophils % (A) 1 %; Eosinophils # (A) 0.1 k/uL (0-0.7); Eosinophils % (A) 1 %; HCT 50.5 % (34.0-46.0); HGB 17.1 gm/dL (11.4-16.0); Lymphocytes % (A) 38 %; MCH 34.2 pg (25.0-35.0); MCHC 33.8 g/dL (31.0-37.0); Mean Platelet Volume 8.7; Monocytes # (A) 0.4 k/uL (0-1.0); Monocytes % (A) 5 %; Neutrophils # (A) 4.2 k/uL (1.3-7.7); Neutrophils % (A) 52 %; Platelet Count 360 k/uL (150-450); RBC 5.01 m/uL (3.80-5.40); RDW 12.3 % (11.5-15.5); WBC 7.9 k/uL (3.8-10.6)
[2021-08-04 17:25] VITALS: BP 112/78; PULSE 66; RESP 17; TEMP 98.3
== END 2021-08-04 17:30 | disposition home or self-care (01) ==
LOC: EC 10:55
DX: R07.81 Pleurodynia (principal); F17.200 Nicotine dependence, unspecified, uncomplicated; Z88.0 Allergy status to penicillin; Z91.041 Radiographic dye allergy status; Z91.013 Allergy to seafood
CPT/HCPCS: 36415; 93005; 85379; 80053; 82150; 83690; 83735; 84484; 85025; 85610; 85730; 71046; 99285; 96374; 96361; J1885

== ENCOUNTER → 2023-06-06 | Outpatient (CLI) | payer OTHER ==
--- NOTE | 2023-06-06 14:30 | US ---
EXAMINATION TYPE: US venous doppler duplex LE DATE OF EXAM: 06/06/2023 12:49 PM COMPARISON: NONE CLINICAL INDICATION: Female, 42 years old with history of R60.0 LOCALIZED EDEMA,M79.89; Intermittent swelling x few years; constant last month SIDE PERFORMED: Bilateral TECHNIQUE: The lower extremity deep venous system is examined utilizing real time linear array sonog ramses with graded compression, doppler sonography and color-flow sonography. VESSELS IMAGED: Common Femoral Vein Deep Femoral Vein Greater Saphenous Vein * Femoral Vein Popliteal Vein Small Saphenous Vein * Proximal Calf Veins (* superficial vessels) Right Leg: Negative for DVT Left Leg: Negative for DVT IMPRESSION: Grayscale, color doppler, spectral doppler imaging performed of the deep veins of the lo wer extremities. There is normal flow, compressibility, vascular waveforms.
== END | disposition home or self-care (01) ==
LOC: RADUSWWP 12:45
PROVIDERS: ATTEND Family Medicine
DX: M79.89 Other specified soft tissue disorders (principal); R60.0 Localized edema
CPT/HCPCS: 93970

== ENCOUNTER → 2023-06-22 | Outpatient (CLI) | payer OTHER ==
[2023-06-22 17:56] LABS: NT-Pro-B-Type Natriuretic Pept 31 pg/mL
[2023-06-23 02:55] LABS: C Reactive Protein <0.30 mg/dL (0.00-0.80); Rheumatoid Factor, Qnt <15 IU/mL (0-15)
== END | disposition home or self-care (01) ==
LOC: LABWHC1 15:21
PROVIDERS: ATTEND Family Medicine
DX: M25.50 Pain in unspecified joint (principal); R60.0 Localized edema
CPT/HCPCS: 36415; 83880; 86038; 86140; 86160; 86215; 86431

== ENCOUNTER → 2024-01-12 | Outpatient (CLI) | payer OTHER | END | disposition home or self-care (01) | LOC: LABWHC1 14:45 | PROVIDERS: ATTEND Family Medicine | DX: W57.XXXA Bitten or stung by nonvenomous insect and other nonvenomous arthropods, initial encounter | CPT/HCPCS: 36415; 86618 ==

== ENCOUNTER → 2024-03-20 | Outpatient (CLI) | payer OTHER ==
[2024-03-20 11:28] VITALS: BP 118/83; PULSE 87; RESP 18; TEMP 97.6
--- NOTE | 2024-03-20 12:36 | P.SLEEP ---
History of Present Illness DATE: 03/20/2024 CONSULTATION/NEW PATIENT EVALUATION HISTORY OF PRESENT ILLNESS/SLEEP-WAKE EVALUATION: 43-year-old lady had been evaluated in the sleep center for possible obstructive sleep apnea hypopnea syndrome. SLEEP SCHEDULE: Usually sleep schedule from 1011 PM to 67 AM 7 days a week. FALLING ASLEEP: Patient has difficulties with falling asleep, has TV set in bedroom. DURING SLEEP: Patient usually sleeps on the side position with loud snoring and witnessed episodes of stop breathing during the sleep. Patient wakes up from sleep up to 5 times with 2 episodes of nocturia with episodes of palpitations, sweating, restless legs. Positive history of full body twitching and leg kicking at night no history of hypnogogical hallucinations, sleep paralysis. Questionable positive history of cataplexy. DURING THE DAY/WAKE STATE: In the morning patient wake up tired, has difficulties to pay attention, has problems with memory, concentration, irritability, anxiety.. Rapelje sleepiness scale is extremely high 21. Patient may take up to 3 naps during the day. PAST MEDICAL HISTORY: Acid reflux, headaches, sinuses problems. PAST SURGICAL HISTORY: Uterus ablation, hernia repair. MEDICATIONS: None at the present time. SOCIAL HISTORY: Please see below. FAMILY HISTORY: Please see below. REVIEW OF SYSTEMS: Loud snoring, multiple awakenings from sleep, sleepiness during the day. No fevers. No double vision. No recent chest pain. No shortness of breath. No abdominal pain. No bleeding episodes. No blood in urine. No seizure episodes. PHYSICAL EXAMINATION: GENERAL: A pleasant patient without any distress. VITAL SIGNS: Please see below, weight 189.2 pounds, BMI 33.4. HEENT: PERRLA, EOMI. Evaluation of oropharynx showed tongue protrudes midline, low position of soft palate Mallampati 4. NECK: Supple. No JVD. Thyroid is not palpable. 14.5 inches in circumference. LUNGS: Clear to percussion and to auscultation. Good air exchange. No wheezing or rhonchi. HEART: S1, S2 regular. No murmurs, gallops or rubs. ABDOMEN: Soft and nontender. Bowel sounds are present. No organomegaly appreciated. EXTREMITIES: No clubbing or cyanosis. LOAN CLERK: Awake, alert, and oriented x3. Cranial nerves 2 to 7 intact. There is no fasciculation or atrophy noted. No focal deficits observed. ASSESSMENT: 1. Loud snoring, witnessed episodes of stop breathing during the sleep, extremely low position of soft palate Mallampati 4, significant excessive daytime sleepiness. Obstructive sleep apnea hypopnea syndrome. 2. Significant excessive daytime sleepiness with Rapelje Sleepiness Scale and extremely high range of 21 dictates necessity to include hypersomnia and narcolepsy in differential diagnosis. 3. Obesity, BMI 33.4. 4. Acid reflux. 5 headaches. PLAN: 1. Home sleep apnea test for evaluation of patient's breathing during sleep. 2. Following plan after reading sleep study. Patient will need multiple sleep latency test, if home sleep apnea test will be negative for obstructive sleep apnea hypopnea syndrome. 3. Preferable position during sleep on the side. 4. No driving if patient feels any sleepiness. Patient is aware of civil and criminal liability for unsafe driving. 5. Sleep hygiene with regular sleep time for at least 7.5-8 hours. 6. Watching weight. Thank you very much for referring this patient for consultation. Sincerely, Carter Freeman MD, PhD, FAASM. 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 She has been amenorrheic since her endometrial ablation in 2006. Double hernia - (1) umbilical and (1) off to the left side of the umbilical - in the abdomen. Sinus headaches, snorng, headaches. History of Any Multi-Drug Resistant Organisms: None Reported Past Surgical History: Hernia Repair, Uterine Ablation Additional Past Surgical History / Comment(s): Endometrial ablation 2006; Double hernia repair 09/2018; Past Anesthesia/Blood Transfusion Reactions: No Reported Reaction Past Psychological History: Anxiety Smoking Status: Former smoker Past Alcohol Use History: Occasional Additional Past Alcohol Use History / Comment(s): 03/20/24 pt states she quit smoking a little over a year ago. Past Drug Use History: None Reported - Past Family History Father Family Medical History: No Reported History, Cancer, Coronary Artery Disease (CAD) Additional Family Medical History / Comment(s): Paternal grandmother had uterine cancer. Dad - arthritis, pt unsure what type of cancer dad had. Mother Family Medical History: Cancer, CVA/TIA, Diabetes Mellitus, Thyroid Disorder Additional Family Medical History / Comment(s): Maternal grandmother had cervical cancer. Some grandparents also had diabetes. Mom had uterine cancer. Medications and Allergies Home Medications Medication Instructions Recorded Confirmed Type Ibuprofen [Motrin] 600 mg PO Q8HR PRN #30 tab 02/21/20 08/04/21 Rx Ibuprofen [Motrin] 600 mg PO Q8HR PRN #30 tab 08/04/21 Rx methylPREDNISolone Dose Pack See Taper PO DIRECTED 08/04/21 08/04/21 History [Medrol Dose Pack] Allergies Allergy/AdvReac Type Severity Reaction Status Date / Time amoxicillin Allergy Rash/Hives, Verified 08/04/21 16:07 vomiting iodine Allergy Dyspnea,HIV Verified 08/04/21 16:07 ES Penicillins Allergy Rash/Hives Verified 08/04/21 16:07 shellfish derived [Shellfish] Allergy Dyspnea,HIV Verified 08/04/21 16:07 ES Physical Exam Vitals: Vital Signs Temp Pulse Resp BP Pulse Ox 03/20/24 11:27 97.6 F 87 18 118/83 95 Intake and Output 03/19/24 03/20/24 03/20/24 22:59 06:59 14:59 Other: Weight 85.786 kg Sleep Note - Sleep Data ESS Total: 21 - Sleep Note Sleep Note: Temperature: 97.6 F Pulse Rate: 87 Respiratory Rate: 18 Blood Pressure: 118/83 SpO2: 95 Height: 5 ft 3 in Weight: 85.786 kg BMI: Neck Circumference: 14.5
== END ==
LOC: 3 N SLEEP 11:02
PROVIDERS: ATTEND Internal Medicine
DX: G47.33 Obstructive sleep apnea (adult) (pediatric) (principal); G47.10 Hypersomnia, unspecified; E66.9 Obesity, unspecified; K21.9 Gastro-esophageal reflux disease without esophagitis; R51.9 Headache, unspecified; F17.200 Nicotine dependence, unspecified, uncomplicated; Z68.33 Body mass index [BMI] 33.0-33.9, adult; Z88.0 Allergy status to penicillin; Z88.8 Allergy status to other drugs, medicaments and biological substances; Z91.013 Allergy to seafood
CPT/HCPCS: 99211

== ENCOUNTER → 2024-03-27 | Outpatient (CLI) | payer OTHER ==
--- NOTE | 2024-03-28 15:16 | P.PCN ---
Description of Procedure: CLINICAL: A home sleep apnea test has been done for confirmation of possible obstructive sleep apnea-hypopnea syndrome. DESCRIPTION OF PROCEDURE: RESULTS: Recording time was 9 hours 7 minutes. Evaluation time was 8 hours 50 minutes. Evaluation time is sufficient for making conclusion about results of the test. Raw data of sleep recording has been reviewed and is adequate. Respiratory channel showed 21 apneas and 57 hypopneas. Apnea-hypopnea index was 8.8 per hour. Pulse rate in the range between minimum 56, maximum 107, average 77 by computer calculation. Lowest desaturation was 80%. IMPRESSION: 1. Obstructive Sleep Apnea Hypopnea Syndrome in mild range. Patient presents with symptoms of significant excessive daytime sleepiness with very high [place] Sleepiness Scale of 21 Please see other impressions from consultation. PLAN: 1. The patient will be started on auto-PAP treatment for correction of respiratory abnormallities during sleep. 2. I will see patient for follow up visit to discuss results of the test, evaluate clinical response on treatment with PAP therapy and make any necessary adjustments related to mask fitting, pressure, and humidification. If patient will continue to have significant sleepiness while on treatment with CPAP, we may consider multiple sleep latency test. 3. Watching weight. 4. Sleep hygiene with regular time in bed for at least 8 hours. 5. No driving if feeling any sleepiness. Thank you very much for allowing me to participate in the management of your patient. Sincerely, Carter Freeman MD, PhD, FAASM Diplomat of [place] [employer] Sleep Medicine Board of [place] [employer] Grain Cleaner And Transfer Operator of [facility] [place] cc: John Damian DO
== END ==
LOC: 3 N SLEEP 10:53
PROVIDERS: ATTEND Internal Medicine
DX: G47.33 Obstructive sleep apnea (adult) (pediatric) (principal); G47.10 Hypersomnia, unspecified; F17.200 Nicotine dependence, unspecified, uncomplicated; Z88.0 Allergy status to penicillin; Z88.8 Allergy status to other drugs, medicaments and biological substances; Z91.013 Allergy to seafood

== ENCOUNTER → 2024-04-15 | Outpatient (CLI) | payer OTHER ==
--- NOTE | 2024-04-15 10:55 | US ---
EXAMINATION TYPE: US abdomen complete DATE OF EXAM: 04/15/2024 COMPARISON: NONE CLINICAL INDICATION: Female, 43 years old with history of ABD DISTENTION R10.84; bloating TECHNIQUE: Grayscale and color Doppler imaging of the abdomen was performed. FINDINGS: EXAM MEASUREMENTS: Liver Length: 17.5 cm Gallbladder Wall: 0.2 cm CBD: 0.5 cm, color Doppler imaging was utilized to isolate the common bile duct for measurement. Spleen: 9.9 cm Right Kidney: 10.9 x 4.8 x 4.3 cm Left Kidney: 10.4 x 4.7 x 5.5 cm Pancreas: wnl Liver: wnl Gallbladder: wnl Evidence for sonographic Osman's sign: no CBD: wnl Spleen: wnl Right Kidney: wnl Left Kidney: wnl Upper IVC: wnl Abd Aorta: wnl The liver is homogenous. The intrahepatic portion of the IVC and proximal abdominal aorta are within normal limits. There is no evidence of cholelithiasis. Common bile duct is unremarkable. The visu alized portions of the pancreas are homogenous. The spleen is unremarkable. Kidneys are symmetric a nd free of hydronephrosis. No renal lesions are seen. IMPRESSION: No evidence for acute process. [facility], , 04/15/2024 10:52 AM
--- NOTE | 2024-04-15 10:57 | US ---
EXAMINATION TYPE: US transvaginal DATE OF EXAM: 04/15/2024 COMPARISON: Prior CT. CLINICAL INDICATION: Female, 43 years old with history of ABD DISTENTION R10.84; bloating, h/o ablati on TECHNIQUE: TV. Grayscale and color Doppler imaging of the pelvis. Transvaginal sonographic images FINDINGS: Date of LMP: 2018 - ablation EXAM MEASUREMENTS: Uterus: 7.0 x 5.1 x 4.0 cm Endometrial Stripe: 0.3 cm Right Ovary: 3.8 x 1.5 x 2.4 cm Left Ovary: 3.4 x 4.4 x 2.8 cm 1. Uterus: Retroverted wnl 2. Endometrium: wnl 3. Right Ovary: wnl 4. Left Ovary: 2 anechoic areas seen, largest = 2.6 x 2.6 x 2.1cm 5. Bilateral Adnexa: varicose vessels within lt adnexa - possible pelvic congestion 6. Posterior cul-de-sac: wnl IMPRESSION: 1. Endometrium within normal limits for thickness. 2. Dominant follicles in the left ovary. 3. Tortuous vessels within the pelvis correlate for pelvic congestion syndrome. [facility], , 04/15/2024 10:55 AM
== END | disposition home or self-care (01) ==
LOC: RADUSWWP 07:58
PROVIDERS: ATTEND Family Medicine
DX: R10.84 Generalized abdominal pain (principal); R14.0 Abdominal distension (gaseous)
CPT/HCPCS: 76700; 76830

== ENCOUNTER → 2024-07-29 | Outpatient (CLI) | payer OTHER ==
[2024-07-29 15:19] LABS: Basophils # (A) 0.08 X 10*3/uL (0.00-0.10); Basophils % (A) 1.4 %; Eosinophils # (A) 0.35 X 10*3/uL (0.04-0.35); Eosinophils % (A) 6.3 %; HCT 41.4 % (37.2-46.3); HGB 13.8 g/dL (12.0-15.0); Lymphocytes # (A) 1.81 X 10*3/uL (0.90-5.00); Lymphocytes % (A) 32.7 %; MCH 31.4 pg (27.0-32.0); MCHC 33.3 g/dL (32.0-37.0); MCV 94.1 FL (80.0-97.0); Mean Platelet Volume 11.4 FL (9.5-12.2); Monocytes # (A) 0.42 X 10*3/uL (0.20-1.00); Monocytes % (A) 7.6 %; NRBC Per 100 WBC 0 X 10*3/uL (0.00-0.01); Neutrophils # (A) 2.87 X 10*3/uL (1.80-7.70); Neutrophils % (A) 51.8 %; Platelet Count 313 X 10*3/uL (140-440); RDW 12.5 % (11.5-14.5); WBC 5.54 X 10*3/uL (4.50-10.00)
[2024-07-29 15:52] LABS: Thyroid Peroxidase Antibodies 13.9 U/mL (0.0-33.0)
[2024-07-29 16:06] LABS: Follicle Stimulating Hormone 18.1 mIU/mL; Progesterone 1.5 ng/mL
== END | disposition home or self-care (01) ==
LOC: LABWHC1 10:00
PROVIDERS: ATTEND Psychiatry & Neurology Neurology
DX: I49.9 Cardiac arrhythmia, unspecified (principal); R68.82 Decreased libido
CPT/HCPCS: 36415; 82306; 82670; 83001; 84144; 84403; 84443; 85025; 86376; 93005

== ENCOUNTER → 2024-08-14 | Outpatient (CLI) | payer OTHER ==
--- NOTE | 2024-08-14 15:44 | MM ---
Reason for Exam: Screening (asymptomatic). Last mammogram was performed 3 year(s) and 7 month(s) ago. Patient History: Menarche at age 13. First Full-Term at age 21. Patient has history of breast feeding. 2009, Benign Excisional Biopsy on the left side. Risk Values: Jessica 5 year model risk: 1.0%. NCI Lifetime model risk: 9.5%. Prior Study Comparison: 07/02/2020 Bilateral Screening Mammogram, [facility]. 07/16/2020 Right Diagnostic Mammogram, [facility]. 01/18/2021 Bilateral Diagnostic Mammogram, [facility]. Tissue Density: The breasts are heterogeneously dense, which may obscure small masses. Findings: Analyzed By CAD. Redemonstrated intramammary lymph node upper-outer quadrant left breast. Microclip left breast from prior biopsy. Areas of asymmetric density are unchanged. There is no suspicious group of microcalcifications or new suspicious mass in either breast. Overall Assessment: Benign, BI-RAD 2 Management: Screening Mammogram of both breasts in 1 year. Patient should continue monthly self-breast exams. A clinical breast exam by your physician is recommended on an annual basis. This exam should not preclude additional follow-up of suspicious palpable abnormalities. Note on Jessica scores and lifetime risk: 1. A Jessica score greater than 3% is considered moderate risk. If this is the case, consider specialist referral to assess eligibility for a risk reducing agent. 2. If overall lifetime risk for the development of breast cancer is 20% or higher, the patient may qualify for future screening with alternating mammogram and breast MRI. [facility], , 08/14/2024 3:41 PM. Electronically signed and approved by: Iris Jain M.D. Radiologist
== END | disposition home or self-care (01) ==
LOC: RADMAMWWP 11:08
PROVIDERS: ATTEND Obstetrics & Gynecology
DX: Z12.31 Encounter for screening mammogram for malignant neoplasm of breast (principal); R92.333 Mammographic heterogeneous density, bilateral breasts
CPT/HCPCS: 77063; 77067